=== PATIENT | female | born 1970 | race Caucasian/White ===

== ENCOUNTER → 2020-04-12 | Outpatient (CLI) | payer OTHER ==
--- NOTE | 2020-04-24 13:29 | RAD ---
EXAM: Bilateral digital screening mammogram with tomosynthesis. HISTORY: 49-year-old female presents for screening mammography. TECHNIQUE: Full-field digital craniocaudal and mediolateral oblique 2D and 3D tomosynthesis images of both breasts are obtained for evaluation. Computer aided detection was applied. COMPARISON: There is no prior study for comparison. This exam serves as a new baseline mammogram. BREAST PARENCHYMAL DENSITY: Level B - Scattered fibroglandular densities. FINDINGS: There is a small nodular asymmetry within the 5:00 position of the right breast approximate ly 3.5 cm from the nipple in the craniocaudal projection. The absence of a correlate in the mediolate ral oblique projection favors benignity. There is no architectural distortion or suspicious calcifica tion within either breast. IMPRESSION: BI-RADS Category 0: Incomplete. Additional imaging needed. RECOMMENDATION: Further evaluation with a full field true lateral view and spot compression craniocau lalita view of the right breast to assess nodular asymmetry at the 5:00 position is recommended. Sonogra phic imaging may be performed if deemed indicated based on additional mammographic findings. If your mammogram demonstrates that you have dense breast tissue, which could hide abnormalities, and if you have other risk factors for breast cancer that have been identified, you might benefit from s upplemental screening tests that may be suggested by your ordering physician. Dense breast tissue, i n and of itself, is a relatively common condition. This information is not provided to cause undue c oncern, but rather to raise your awareness and to promote discussion with your physician regarding th e presence of other risk factors, in addition to dense breast tissue. A report of your mammography re sults will be sent to you and your physician. You should contact your physician if you have any ques tions or concerns regarding this report. Mammography is a sensitive method for finding small breast cancers, but it does not detect them all a nd is not a substitute for careful clinical examination. A negative mammogram does not negate a clin ically suspicious finding and should not result in delay in biopsying a clinically suspicious abnorma lity. PQRS compliance statement - Patient information was entered into a reminder system with a target due date for the next mammogram. "Our facility is accredited by the [employer] Mammography Program." Electronically signed by: Laura Ga MD (04/24/2020 1:26 PM) [id number]
== END ==
LOC: MAMMO 12:48
PROVIDERS: ATTEND Nurse Practitioner Family
DX: Z12.31 Encounter for screening mammogram for malignant neoplasm of breast (principal)
CPT/HCPCS: 77063; 77067

== ENCOUNTER → 2020-05-17 | Outpatient (CLI) | payer OTHER ==
--- NOTE | 2020-05-17 14:07 | RAD ---
PROCEDURE: MG DIAGNOSTICUNILAT MAMMO HISTORY: The patient is 49 years old and is seen for Reason: / Spl. Instructions: / History: . COMPARISON: April 12, 2020 and September 21, 2017 TECHNIQUE: Right breast CC spot compression view and ML view. DENSITY: There are scattered fibroglandular densities. FINDINGS: Previously identified right breast asymmetry is resolved on the spot compression view. IMPRESSION: Previously identified right breast asymmetry is resolved on spot compression view, likely overlapping fibroglandular tissue. Recommend annual screening mammograms per [employer] guidelines. She will be due in one year. BI-RADS category 2 Benign Patient entered into a reminder system for annual screening mammogram. Electronically signed by: Ibrahima aNth DO (05/17/2020 2:04 PM) [id number]
== END ==
LOC: MAMMO 13:17
PROVIDERS: ATTEND Nurse Practitioner Family
DX: R92.2 Inconclusive mammogram (principal)
CPT/HCPCS: 77065